=== PATIENT | female | born 1950 | race Caucasian/White ===

== ENCOUNTER → 2017-03-01 | Outpatient (CLI) | payer MEDICARE, BC ==
[2017-03-01 08:16] LABS: Appearance,Urine Clear (Clear); Bacteria,Urine Rare /hpf; Bilirubin,Urine Negative (Negative); Glucose,Urine (UA) Negative (Negative); Ketones,Urine Negative (Negative); Leukocyte Esterase,Urine Trace (Negative); Mucus,Urine Occasional /hpf; Nitrite,Urine Negative (Negative); Particle Count 2523; Protein,Urine Negative (Negative); RBC,Urine 25 /hpf (0-5); Specific Gravity,Urine 1.009 (1.001-1.035); Squamous Epithelial Cell,Urine 1 /hpf (0-4); UA Billing (MACRO vs. MICRO) MICRO; Urobilinogen,Urine <2.0 mg/dL (<2.0); WBC,Urine 7 /hpf (0-5)
[2017-03-01 08:19] LABS: Basophils # (A) 0.1 k/uL (0-0.2); Basophils % (A) 2 %; CH 29.9; CHCM 32.2; Eosinophils # (A) 0.1 k/uL (0-0.7); Eosinophils % (A) 3 %; HCT 39.8 % (34.0-46.0); HDW 2.51; HGB 12.9 gm/dL (11.4-16.0); Luc # (Auto) 0.11; Luc % (Auto) 3; Lymphocytes # (A) 1.4 k/uL (1.0-4.8); Lymphocytes % (A) 33 %; MCH 30.3 pg (25.0-35.0); MCHC 32.4 g/dL (31.0-37.0); MCV 93.4 fL (80.0-100.0); Mean Platelet Volume 6.9; Monocytes # (A) 0.3 k/uL (0-1.0); Monocytes % (A) 7 %; Neutrophils # (A) 2.1 k/uL (1.3-7.7); Neutrophils % (A) 52 %; RBC 4.26 m/uL (3.80-5.40); RDW 12.8 % (11.5-15.5); WBC 4.1 k/uL (3.8-10.6); WBC (Perox) 4.17
[2017-03-01 08:33] LABS: Hemoglobin A1C 5.8 % (4.2-6.1)
[2017-03-01 10:50] LABS: ALT 30 U/L (9-52); AST 24 U/L (14-36); Alkaline Phosphatase 70 U/L (38-126); Anion Gap 5 mmol/L; Blood Urea Nitrogen 13 mg/dL (7-17); Calcium 9.2 mg/dL (8.4-10.2); Carbon Dioxide 30 mmol/L (22-30); Chloride 107 mmol/L (98-107); Cholesterol 198 mg/dL (<200); Glucose 85 mg/dL (74-99); HDL Cholesterol 103 mg/dL (40-60); Non-African American GFR(MDRD) >60 (>60 ml/min/1.73 sqM); Potassium 4.3 mmol/L (3.5-5.1); Sodium 142 mmol/L (137-145); Total Bilirubin 0.6 mg/dL (0.2-1.3); Total Protein 6.6 g/dL (6.3-8.2); Triglycerides 56 mg/dL (<150)
[2017-03-01 11:38] LABS: Vitamin B12 576 pg/mL
== END | disposition home or self-care (01) ==
LOC: LABWHC1 07:17
PROVIDERS: ATTEND Family Medicine
DX: E78.5 Hyperlipidemia, unspecified (principal); I48.0 Paroxysmal atrial fibrillation; R31.1 Benign essential microscopic hematuria; R73.01 Impaired fasting glucose
CPT/HCPCS: 36415; 80053; 80061; 81001; 82306; 82607; 83036; 84439; 84443; 85025

== ENCOUNTER → 2017-06-30 | Outpatient (CLI) | payer MEDICARE, BC ==
--- NOTE | 2017-06-30 09:45 | MM ---
Reason for exam: additional evaluation requested from prior study. Last mammogram was performed 1 year ago. History: Patient is postmenopausal and has history of breast cancer at age 52. Family history of breast cancer in maternal aunt. Benign lumpectomy of the left breast, October 15, 2002. Stereotactic core biopsy of the left breast, September 21, 2002. 2 benign cyst aspirations of the right breast. Physical Findings: Nurse did not find any significant physical abnormalities on exam. MG 3D Diag Mammo W/Cad BLESSING Bilateral CC and MLO view(s) were taken. ML, spot compression MLO, and spot compression CC view(s) were taken of the right breast. Prior study comparison: June 18, 2016, bilateral MG diagnostic mammo w CAD BLESSING. June 11, 2015, bilateral MG diagnostic mammo w CAD BLESSING. May 28, 2014, bilateral MG diagnostic mammo w CAD BLESSING. There are scattered fibroglandular densities. Finding: Architectural distortion in the upper outer quadrant, middle position of the right breast. These results were verbally communicated with the patient and result sheet given to the patient on 06/30/17. ASSESSMENT: Incomplete: need additional imaging evaluation, BI-RAD 0 RECOMMENDATION: Ultrasound of the right breast. (upper outer quadrant)
--- NOTE | 2017-06-30 09:47 | USB ---
Reason for exam: additional evaluation requested from abnormal screening. History: Patient is postmenopausal and has history of breast cancer at age 52. Family history of breast cancer in maternal aunt. Benign lumpectomy of the left breast, October 15, 2002. Stereotactic core biopsy of the left breast, September 21, 2002. 2 benign cyst aspirations of the right breast. US Breast Limited RT Right breast ultrasound demonstrates a 0.4 x 0.3 x 0.3cm hypoechoic mass at 11 o'clock. These results were verbally communicated with the patient and result sheet given to the patient on 06/30/17. ASSESSMENT: Suspicious, BI-RAD 4 RECOMMENDATION: Ultrasound core biopsy of the right breast. Called Dr. Barbosa with mammographic findings office states they will call patient with appointment date and time. PRELIMINARY REPORT CALLED AND FAXED TO DR. APONTE ON 06/30/17 /TMP.
== END | disposition home or self-care (01) ==
LOC: RADMAMWWP 07:35
PROVIDERS: ATTEND Family Medicine
DX: R92.8 Other abnormal and inconclusive findings on diagnostic imaging of breast (principal); Z85.3 Personal history of malignant neoplasm of breast
CPT/HCPCS: 76642; G0204; G0279

== ENCOUNTER → 2017-07-13 | Day surgery (SDC) | payer MEDICARE, BC ==
[2017-07-13 11:21] VITALS: BP 122/77; PULSE 58; RESP 16; TEMP 97.1; BMI 25.2
[2017-07-13 12:23] LABS: INR 0.9 (<1.2); Prothrombin Time 9.6 sec (9.0-12.0)
--- NOTE | 2017-07-13 13:04 | USB ---
Discontinued ultrasound guided biopsy right breast HISTORY: Right 11:00 abnormality on prior examination COMPARISON: June 30, 2017 The patient was prescanned for possible right sided breast core biopsy. The lesion in question noted previously does not persist. The area is felt to reflect dense fibroglandular tissue. This was discus sed with the patient and the patient's physician. Six-month follow-up ultrasound and mammography is a dvised. IMPRESSION: BI-RADS 3 probably benign Recommendation: 6 month follow-up right-sided breast ultrasound and mammography.
== END ==
LOC: RADUSWWP 10:58
PROVIDERS: ATTEND Surgery
DX: R92.8 Other abnormal and inconclusive findings on diagnostic imaging of breast (principal); Z53.8 Procedure and treatment not carried out for other reasons
CPT/HCPCS: 85610

== ENCOUNTER → 2017-09-08 | Outpatient (CLI) | payer MEDICARE, BC ==
[2017-09-08 07:55] LABS: Basophils % (A) 1 %; CH 28.8; CHCM 31.5; Eosinophils # (A) 0.2 k/uL (0-0.7); Eosinophils % (A) 4 %; HDW 2.38; HGB 13.1 gm/dL (11.4-16.0); Luc # (Auto) 0.09; Luc % (Auto) 2; Lymphocytes # (A) 1.6 k/uL (1.0-4.8); Lymphocytes % (A) 39 %; MCH 29.3 pg (25.0-35.0); MCHC 31.8 g/dL (31.0-37.0); Mean Platelet Volume 7.2; Monocytes # (A) 0.3 k/uL (0-1.0); Monocytes % (A) 6 %; Neutrophils % (A) 48 %; RBC 4.46 m/uL (3.80-5.40); RDW 13.2 % (11.5-15.5); WBC 4.2 k/uL (3.8-10.6); WBC (Perox) 4.12
[2017-09-08 08:23] LABS: ALT 26 U/L (9-52); AST 27 U/L (14-36); Alkaline Phosphatase 68 U/L (38-126); Anion Gap 7 mmol/L; Blood Urea Nitrogen 16 mg/dL (7-17); Calcium 9.3 mg/dL (8.4-10.2); Carbon Dioxide 28 mmol/L (22-30); Chloride 105 mmol/L (98-107); Cholesterol 236 mg/dL (<200); Creatine Kinase 113 U/L (30-135); Glucose 88 mg/dL (74-99); HDL Cholesterol 91 mg/dL (40-60); Magnesium 1.9 mg/dL (1.6-2.3); Non-African American GFR(MDRD) >60 (>60 ml/min/1.73 sqM); Potassium 4.7 mmol/L (3.5-5.1); Sodium 140 mmol/L (137-145); Total Bilirubin 0.6 mg/dL (0.2-1.3); Total Protein 7.1 g/dL (6.3-8.2)
== END | disposition home or self-care (01) ==
LOC: LABWHC1 07:23
PROVIDERS: ATTEND Family Medicine
DX: D05.12 Intraductal carcinoma in situ of left breast (principal); E78.5 Hyperlipidemia, unspecified; I48.2 Chronic atrial fibrillation; R73.01 Impaired fasting glucose; R31.1 Benign essential microscopic hematuria
CPT/HCPCS: 36415; 80053; 80061; 82306; 82550; 82607; 83036; 83735; 84439; 84443; 85025

== ENCOUNTER → 2018-01-11 | Outpatient (CLI) | payer BC, MEDICARE ==
--- NOTE | 2018-01-11 14:23 | MM ---
Reason for exam: follow-up at short interval from prior study. Last mammogram was performed 6 months ago. History: Patient is postmenopausal and has history of breast cancer at age 52. Family history of breast cancer in maternal aunt. US discontinued breast bx RT of the right breast, July 13, 2017. Benign lumpectomy of the left breast, October 15, 2002. Stereotactic core biopsy of the left breast, September 21, 2002. 2 benign cyst aspirations of the right breast. Physical Findings: Nurse Summary: 1cm nodule in the right breast at 11 o'clock (nurse dw). MG 3D Diag Mammo W/Cad RT CC, MLO, and ML view(s) were taken of the right breast. Prior study comparison: June 30, 2017, bilateral MG 3d diag mammo w/cad BLESSING. June 18, 2016, bilateral MG diagnostic mammo w CAD BLESSING. The breast tissue is heterogeneously dense. This may lower the sensitivity of mammography. Global asymmetry upper outer quadrant right breast shows not interval change. These results were verbally communicated with the patient and result sheet given to the patient on 01/11/18. ASSESSMENT: Incomplete: need additional imaging evaluation, BI-RAD 0 RECOMMENDATION: Ultrasound of the right breast.
--- NOTE | 2018-01-11 14:25 | USB ---
Reason for exam: follow-up at short interval from prior study. History: Patient is postmenopausal and has history of breast cancer at age 52. Family history of breast cancer in maternal aunt. US discontinued breast bx RT of the right breast, July 13, 2017. Benign lumpectomy of the left breast, October 15, 2002. Stereotactic core biopsy of the left breast, September 21, 2002. 2 benign cyst aspirations of the right breast. US Breast RT Right breast ultrasound includes all four quadrants, the retroareolar region and axilla. Finding demonstrates a 2 x 1 x 3mm oval, cystic lesion at 9 o'clock and a 2 x 2 x 2mm oval, cystic lesion at 9 o'clock. Dense echogenic tissue seen at the 11 o'clock palpable site, similar appearance to 07/13/17. These results were verbally communicated with the patient and result sheet given to the patient on 01/11/18. ASSESSMENT: Probably benign, BI-RAD 3 RECOMMENDATION: Follow-up diagnostic mammogram of both breasts in 6 months. Back on schedule.
== END | disposition home or self-care (01) ==
LOC: RADMAMWWP 13:26
PROVIDERS: ATTEND Family Medicine
DX: N63.10 Unspecified lump in the right breast, unspecified quadrant (principal); R92.8 Other abnormal and inconclusive findings on diagnostic imaging of breast
CPT/HCPCS: 77065; 76641; G0279

== ENCOUNTER → 2018-03-07 | Outpatient (CLI) | payer MEDICARE ==
[2018-03-07 08:11] LABS: Basophils % (A) 1 %; Eosinophils # (A) 0.3 k/uL (0-0.7); Eosinophils % (A) 4 %; HCT 37.5 % (34.0-46.0); HGB 12.3 gm/dL (11.4-16.0); Lymphocytes # (A) 1.5 k/uL (1.0-4.8); Lymphocytes % (A) 22 %; MCHC 32.8 g/dL (31.0-37.0); MCV 88.3 fL (80.0-100.0); Mean Platelet Volume 6.9; Monocytes # (A) 0.4 k/uL (0-1.0); Monocytes % (A) 6 %; Neutrophils # (A) 4.3 k/uL (1.3-7.7); Neutrophils % (A) 65 %; Platelet Count 337 k/uL (150-450); RBC 4.24 m/uL (3.80-5.40); RDW 12.3 % (11.5-15.5); WBC 6.7 k/uL (3.8-10.6)
[2018-03-07 08:33] LABS: ALT 18 U/L (9-52); AST 24 U/L (14-36); Albumin 3.6 g/dL (3.5-5.0); Alkaline Phosphatase 78 U/L (38-126); Anion Gap 10 mmol/L; Blood Urea Nitrogen 13 mg/dL (7-17); Calcium 9.3 mg/dL (8.4-10.2); Carbon Dioxide 30 mmol/L (22-30); Chloride 104 mmol/L (98-107); Cholesterol 193 mg/dL (<200); Glucose 85 mg/dL (74-99); HDL Cholesterol 78 mg/dL (40-60); LDL Cholesterol,Calculated 100 mg/dL (0-99); Potassium 4.6 mmol/L (3.5-5.1); Sodium 144 mmol/L (137-145); Total Bilirubin 0.5 mg/dL (0.2-1.3); Total Protein 6.8 g/dL (6.3-8.2); Triglycerides 76 mg/dL (<150)
[2018-03-07 16:45] LABS: Vitamin D 25 Hydroxy 37.7 ng/mL (30.0-100.0)
[2018-03-07 19:03] LABS: Hemoglobin A1C 5.7 % (4.0-6.0)
== END | disposition home or self-care (01) ==
LOC: LABWHC1 07:10
PROVIDERS: ATTEND Family Medicine
DX: Z01.419 Encounter for gynecological examination (general) (routine) without abnormal findings (principal); R92.2 Inconclusive mammogram; R73.01 Impaired fasting glucose; M81.0 Age-related osteoporosis without current pathological fracture
CPT/HCPCS: 36415; 80053; 80061; 82306; 82607; 83036; 84403; 85025

== ENCOUNTER → 2018-05-05 | Outpatient (CLI) | payer MEDICARE ==
--- NOTE | 2018-05-07 17:57 | CT ---
EXAMINATION TYPE: CT soft tissue neck w con DATE OF EXAM: 05/05/2018 HISTORY: Right side lymphadenitis COMPARISON: NONE CT DLP: 270.1 mGycm. Automated Exposure Control for Dose Reduction was Utilized. TECHNIQUE: CT scan of the neck is performed with IV Contrast, patient injected with 100 mL of Isovue 300, axial images are obtained, coronal and sagittal reformatted images are reviewed. FINDINGS: Lymph nodes: Superficial to the right masseter there is a nonenlarged 5 mm short axis lymph node is i dentified. Nonenlarged anterior and posterior cervical chain lymph nodes are seen. No enlarged abnorm al morphologically lymph nodes are noted within the head or neck. Airway: Torus tubarius and fossa of Rosenmuller are unremarkable. Airway is patent. Valleculae and pi riform sinuses are symmetric. True and false focal cords are within normal limits. Supraglottic and i nfraglottic airway are unremarkable and patent. Parotid/submandibular glands: Symmetric and unremarkable without significant atrophy or surrounding i nflammatory change. Carotid/Vascular Structures: There is a normal three-vessel conventional branch pattern of the aortic arch. The common carotid arteries demonstrate no evidence of hemodynamically significant stenosis no eric in the carotid bulbs or cervical portions of the internal carotid arteries. Minimal atheroscleros is is seen of the supraclinoid portions of the intracranial internal carotid arteries. The right post erior communicating artery is either congenitally absent or diminutive and not seen. The vertebral ar teries demonstrate patency in their cervical portions and there is slight left sided dominance of the vertebral arteries. Other: Thyroid gland is atrophic. There is very mild centrilobular emphysematous change and pleural p arenchymal thinning of the lung apices. Moderate multilevel degenerative disc disease is seen of the cervical spine. Mild mucosal thickening is present within the ethmoid sinuses. Remaining visualized p aranasal sinuses and mastoid air cells are well aerated. Osseous structures are grossly intact. There is straightening of the usual cervical lordosis. No prevertebral soft tissue swelling. Exam is not o ptimized for evaluation of intracranial structures. IMPRESSION: 1. No morphologically abnormal or enlarged lymph nodes within the neck. Asymmetric 5 mm short axis ly mph node overlies the right masseter but appears unremarkable in morphology. 2. No evidence of acute inflammatory process of the neck.
== END | disposition home or self-care (01) ==
LOC: RADCTMAIN 17:20
PROVIDERS: ATTEND Family Medicine
DX: L04.9 Acute lymphadenitis, unspecified (principal); E04.1 Nontoxic single thyroid nodule
CPT/HCPCS: 70491; Q9967

== ENCOUNTER → 2018-06-09 | Outpatient (CLI) | payer MEDICARE ==
[2018-06-09 08:07] LABS: Basophils % (A) 1 %; Eosinophils # (A) 0.3 k/uL (0-0.7); Eosinophils % (A) 5 %; HCT 34.9 % (34.0-46.0); HGB 11.1 gm/dL (11.4-16.0); Lymphocytes # (A) 1.6 k/uL (1.0-4.8); Lymphocytes % (A) 29 %; MCH 27.5 pg (25.0-35.0); MCHC 31.9 g/dL (31.0-37.0); MCV 86.4 fL (80.0-100.0); Mean Platelet Volume 6.6; Monocytes # (A) 0.3 k/uL (0-1.0); Monocytes % (A) 6 %; Neutrophils # (A) 3.1 k/uL (1.3-7.7); Neutrophils % (A) 57 %; Platelet Count 336 k/uL (150-450); RBC 4.04 m/uL (3.80-5.40); RDW 13.5 % (11.5-15.5); WBC 5.5 k/uL (3.8-10.6)
[2018-06-09 09:44] LABS: C Reactive Protein 23.7 mg/L (<10.0)
[2018-06-09 10:11] LABS: Erythrocyte Sedimentation Rate 70 mm/hr (0-20)
[2018-06-09 10:13] LABS: T4, Free (Free Thyroxine) 1.04 ng/dL (0.78-2.19)
== END | disposition home or self-care (01) ==
LOC: LABWHC1 07:39
PROVIDERS: ATTEND Family Medicine
DX: I48.0 Paroxysmal atrial fibrillation (principal); R79.9 Abnormal finding of blood chemistry, unspecified
CPT/HCPCS: 36415; 84439; 84443; 85025; 85652; 86140

== ENCOUNTER → 2018-06-28 | Outpatient (CLI) | payer MEDICARE ==
--- NOTE | 2018-06-28 17:12 | BD ---
EXAMINATION TYPE: Axial Bone Density DATE OF EXAM: 06/28/2018 COMPARISON: NONE CLINICAL HISTORY: Height: 59.5 IN Weight: 124 LBS FRAX RISK QUESTIONS: History of Fracture in Adulthood: RT WRIST AGE 62 RISK FACTORS HISTORY OF: History of Wrist Fracture: RT When: AGE 62 Surgery to Wrist (right): YES When: AGE 62 Family History of Osteoporosis: YES MOTHER, AUNTS Active: YES Postmenopausal woman: AGE 56 MEDICATIONS: Osteoporosis Medications: YES Which medication: Actonel BONIVA How Lon YEARS Additional Medications: CALCIUM, VIT D, ACTONEL, BLOOD THINNER, BLOOD PRESSURE MEDS, BETA AURORA, EXAM MEASUREMENTS: Bone mineral densitometry was performed using the [employer] System. Bone mineral density as measured about the Lumbar spine is: ----- L1-L4(G/cm2): 0.891 T Score Values are as follows: ----- L2: -2.6 ----- L3: -1.9 ----- L4: -2.5 ----- L1-L4: -2.4 Bone mineral density has: Decreased -1.7% since study of: 06/18/2016 Bone mineral density about the R hip (g/cm2): 0.777 Bone mineral density about the L hip (g/cm2): 0.781 T Score values are as follows: -----R Neck: -1.9 -----L Neck: -1.8 -----R Total: -1.5 -----L Total: -1.1 Bone mineral density has: Increased 1.2% since study of: 06/18/2016 IMPRESSION: Osteoporosis (T Score less than -2.5). There is increased fracture risk and therapy is usually indicated based on age. Re-Screen 1-2 years. NOTE: T-SCORE=SD OF THE YOUNG ADULT MEAN.
== END | disposition home or self-care (01) ==
LOC: RADBDWWP 10:29
PROVIDERS: ATTEND Family Medicine
DX: M81.0 Age-related osteoporosis without current pathological fracture (principal)
CPT/HCPCS: 77080

== ENCOUNTER → 2018-07-04 | Outpatient (CLI) | payer MEDICARE ==
--- NOTE | 2018-07-05 09:20 | MR ---
EXAMINATION TYPE: MR brain wo/w con DATE OF EXAM: 07/04/2018 COMPARISON: None HISTORY: R 44.9, breast cancer TECHNIQUE: Multiplanar, multisequence images of the brain and brainstem is performed without and with IV contras t, utilizing 5 mL intravenous Gadavist . FINDINGS: Diffusion weighted images demonstrate no evidence of a recent infarct or other diffusion ab normality. There is no extra-axial fluid collection, intensity on inversion recovery T2-weighted seq uences within the left eliana may represent artifact. In the periventricular, subcortical, pericallosal white matter there are confluent and scattered hyperintensities present on T2 and inversion recovery sequences, approximately 40-50 lesions are present. The ventricular system and cisternal spaces are normal in size and appearance. The brain volume is age appropriate. Midline structures demonstrate normal morphology. The craniocervical junction appears within normal limits. Post contrast images demonstrate no abnormal enhancement. The dural venous sinuses appear pa tent. The visualized sinuses are clear and the globes are intact. IMPRESSION: Nonspecific white matter demyelination could be due to chronic small vessel ischemia, con public relations writer hypertension, migraine headaches, vasculitis, multiple sclerosis in an appropriate clinical set ting. Metastatic disease is not evident.
== END | disposition home or self-care (01) ==
LOC: RADMRIMAIN 16:29
PROVIDERS: ATTEND Family Medicine
DX: G37.8 Other specified demyelinating diseases of central nervous system (principal); I10 Essential (primary) hypertension
CPT/HCPCS: 82565; 70553; A9581

== ENCOUNTER → 2018-07-07 | Outpatient (CLI) | payer MEDICARE ==
--- NOTE | 2018-07-07 12:44 | XR ---
EXAMINATION TYPE: XR chest 2V DATE OF EXAM: 07/07/2018 COMPARISON: Prior chest 10/27/2016 HISTORY: Cough TECHNIQUE: Frontal and lateral views of the chest are obtained. FINDINGS: There is no focal air space opacity, pleural effusion, or pneumothorax seen. The cardiac silhouette size is within normal limits. There is a mild spinal curvature. The osseous structures ar e intact. IMPRESSION: No acute cardiopulmonary process.
== END | disposition home or self-care (01) ==
LOC: RADXRMAIN 10:44
PROVIDERS: ATTEND Otolaryngology
DX: R05 Cough (principal)
CPT/HCPCS: 71046

== ENCOUNTER → 2019-01-05 | Outpatient (CLI) | payer MEDICARE ==
[2019-01-05 08:39] LABS: Basophils % (A) 1 %; Eosinophils # (A) 0.2 k/uL (0-0.7); Eosinophils % (A) 3 %; HCT 36.1 % (34.0-46.0); HGB 11.5 gm/dL (11.4-16.0); Lymphocytes # (A) 0.9 k/uL (1.0-4.8); Lymphocytes % (A) 18 %; MCHC 31.8 g/dL (31.0-37.0); Mean Platelet Volume 6.2; Monocytes # (A) 0.4 k/uL (0-1.0); Monocytes % (A) 7 %; Neutrophils # (A) 3.6 k/uL (1.3-7.7); Neutrophils % (A) 69 %; Platelet Count 323 k/uL (150-450); RBC 4.11 m/uL (3.80-5.40); RDW 14.9 % (11.5-15.5); WBC 5.2 k/uL (3.8-10.6)
[2019-01-05 08:53] LABS: Appearance,Urine Clear (Clear); Bacteria,Urine Rare /hpf; Bilirubin,Urine Negative (Negative); Blood,Urine Large (Negative); Color,Urine Yellow; Glucose,Urine (UA) Negative (Negative); Ketones,Urine Negative (Negative); Leukocyte Esterase,Urine Small (Negative); Mucus,Urine Few /hpf; Nitrite,Urine Negative (Negative); PH, Urine 6.5 (5.0-8.0); Protein,Urine Trace (Negative); RBC,Urine 115 /hpf (0-5); Specific Gravity,Urine 1.015 (1.001-1.035); Squamous Epithelial Cell,Urine 3 /hpf (0-4); Urobilinogen,Urine <2.0 mg/dL (<2.0); WBC,Urine 11 /hpf (0-5)
[2019-01-05 16:38] LABS: Vitamin D 25 Hydroxy 40.7 ng/mL (30.0-100.0)
[2019-01-05 16:45] LABS: Albumin 3.7 g/dL (3.80-4.90); Albumin/Globulin Ratio 1.54 (1.60-3.17); Anion Gap 8.6 mmol/L (4.00-12.00); Calcium 8.9 mg/dL (8.7-10.3); Carbon Dioxide 27.4 mmol/L (21.6-31.8); Globulin 2.4 g/dL (1.6-3.3); LDL Cholesterol,Calculated 89.4 mg/dL (0.0-131.0); Potassium 4.2 mmol/L (3.5-5.5); Total Bilirubin 0.4 mg/dL (0.2-1.2); Total Protein 6.1 g/dL (6.2-8.2); Uric Acid 4.6 mg/dL (2.9-7.7); VLDL Calculation 13.6 mg/dL (5.00-40.00)
[2019-01-05 21:16] LABS: Hemoglobin A1C 6.1 % (4.0-6.0)
== END | disposition home or self-care (01) ==
LOC: LABWHC1 08:02
PROVIDERS: ATTEND Family Medicine
DX: I48.0 Paroxysmal atrial fibrillation (principal); I10 Essential (primary) hypertension; E07.9 Disorder of thyroid, unspecified; E78.5 Hyperlipidemia, unspecified; M06.4 Inflammatory polyarthropathy
CPT/HCPCS: 36415; 80053; 80061; 81001; 82043; 82306; 82570; 82607; 83036; 84439; 84443; 84550; 85025

== ENCOUNTER → 2019-04-10 | Outpatient (CLI) | payer MEDICARE ==
--- NOTE | 2019-04-10 11:49 | MM ---
Reason for exam: additional evaluation requested from prior study. Last mammogram was performed 1 year and 3 months ago. History: Patient is postmenopausal and has history of breast cancer at age 52. Family history of breast cancer in maternal aunt. US discontinued breast bx RT of the right breast, July 13, 2017. Benign lumpectomy of the left breast, October 15, 2002. Stereotactic core biopsy of the left breast, September 21, 2002. 2 benign cyst aspirations of the right breast. Physical Findings: Nurse did not find any significant physical abnormalities on exam. MG 3D Diag Mammo W/Cad BLESSING Bilateral CC and MLO view(s) were taken. Prior study comparison: January 11, 2018, right breast MG 3d diag mammo w/cad RT. June 30, 2017, bilateral MG 3d diag mammo w/cad BLESSING. The breast tissue is heterogeneously dense. This may lower the sensitivity of mammography. There is a stable right hamartoma. Upper outer quadrant distortion on the left is new 4-5cm from nipple. These results were verbally communicated with the patient and result sheet given to the patient on 04/10/19. ASSESSMENT: Incomplete: need additional imaging evaluation, BI-RAD 0 RECOMMENDATION: Ultrasound of the left breast.
--- NOTE | 2019-04-10 11:51 | USB ---
Reason for exam: additional evaluation requested from abnormal screening. History: Patient is postmenopausal and has history of breast cancer at age 52. Family history of breast cancer in maternal aunt. US discontinued breast bx RT of the right breast, July 13, 2017. Benign lumpectomy of the left breast, October 15, 2002. Stereotactic core biopsy of the left breast, September 21, 2002. 2 benign cyst aspirations of the right breast. US Breast Limited LT Left limited breast ultrasound including focal area of concern, retroareolar and axilla demonstrates no cystic or solid lesion seen. No sonographic correlate to the mammographic finding. These results were verbally communicated with the patient and result sheet given to the patient on 04/10/19. ASSESSMENT: Suspicious, BI-RAD 4 RECOMMENDATION: Stereotactic core biopsy of the left breast. (Approach CC, from above is recommended) Called Dr. Wesley with mammographic findings and has scheduled an appointment for the patient for 05/07/19 at 9:[address] Grant. Biopsy scheduled for 04/26/19 at 10:20. PRELIMINARY REPORT CALLED AND FAXED TO DR. GRANT ON 04/10/19.
== END | disposition home or self-care (01) ==
LOC: RADMAMWWP 08:04
PROVIDERS: ATTEND Family Medicine
DX: R92.8 Other abnormal and inconclusive findings on diagnostic imaging of breast (principal)
CPT/HCPCS: 77066; 76642; G0279; 77062

== ENCOUNTER → 2019-04-20 | Day surgery (SDC) | payer MEDICARE ==
[2019-04-20 09:44] VITALS: BP 139/80; PULSE 67; RESP 18; TEMP 98.1; BMI 53.8
[2019-04-20 10:04] LABS: INR 0.9 (<1.2); Partial Thromboplastin Time 23.3 sec (22.0-30.0); Prothrombin Time 9.5 sec (9.0-12.0)
--- NOTE | 2019-04-23 07:54 | MM ---
Reason for exam: additional evaluation requested from abnormal screening. Last mammogram was performed less than 1 month ago. History: Patient is postmenopausal and has history of breast cancer at age 52. Family history of breast cancer in maternal aunt. US discontinued breast bx RT of the right breast, July 13, 2017. Benign lumpectomy of the left breast, October 15, 2002. Stereotactic core biopsy of the left breast, September 21, 2002. 2 benign cyst aspirations of the right breast. MG 3D Work Up W/Cad LT CC and LM view(s) were taken of the left breast. Prior study comparison: April 10, 2019, bilateral MG 3d diag mammo w/cad BLESSING. January 11, 2018, right breast MG 3d diag mammo w/cad RT. No suspicious abnormality. Left area of distortion adjacent to the biopsy site resolves on additional views with no remaining target for biopsy. 6 month precautionary follow up discussed with the patient. These results were verbally communicated with the patient on 04/20/19. ASSESSMENT: Probably benign, BI-RAD 3 RECOMMENDATION: Follow-up diagnostic mammogram of the left breast in 6 months.
== END ==
LOC: RADMAMWWP 09:06
PROVIDERS: ATTEND Student in an Organized Health Care Education/Training Program
DX: R92.8 Other abnormal and inconclusive findings on diagnostic imaging of breast (principal); Z78.0 Asymptomatic menopausal state; Z80.3 Family history of malignant neoplasm of breast; Z85.3 Personal history of malignant neoplasm of breast
CPT/HCPCS: 85610; 85730; 77065; G0279; 77061

== ENCOUNTER → 2019-09-06 | Outpatient (CLI) | payer MEDICARE ==
[2019-09-06 08:19] LABS: Basophils # (A) 0.1 k/uL (0-0.2); Basophils % (A) 2 %; Eosinophils # (A) 0.3 k/uL (0-0.7); Eosinophils % (A) 5 %; HCT 37.3 % (34.0-46.0); Lymphocytes # (A) 1.2 k/uL (1.0-4.8); Lymphocytes % (A) 20 %; MCH 29.9 pg (25.0-35.0); MCHC 32.3 g/dL (31.0-37.0); MCV 92.5 fL (80.0-100.0); Mean Platelet Volume 6.6; Monocytes # (A) 0.5 k/uL (0-1.0); Monocytes % (A) 8 %; Neutrophils # (A) 3.7 k/uL (1.3-7.7); Neutrophils % (A) 62 %; Platelet Count 316 k/uL (150-450); RBC 4.03 m/uL (3.80-5.40); RDW 13.6 % (11.5-15.5)
[2019-09-06 16:48] LABS: Magnesium 1.9 mg/dL (1.5-2.4)
[2019-09-07 06:02] LABS: Albumin 3.9 g/dL (3.80-4.90); Albumin/Globulin Ratio 1.86 (1.60-3.17); Anion Gap 11.8 mmol/L (4.00-12.00); Calcium 8.9 mg/dL (8.7-10.3); Carbon Dioxide 26.2 mmol/L (21.6-31.8); Chol/HDL Ratio 2.36; Globulin 2.1 g/dL (1.6-3.3); LDL Cholesterol,Calculated 104.6 mg/dL (0.0-131.0); Total Bilirubin 0.6 mg/dL (0.2-1.2); VLDL Calculation 16.4 mg/dL (5.00-40.00)
== END | disposition home or self-care (01) ==
LOC: LABWHC1 07:19
PROVIDERS: ATTEND Family Medicine
DX: E78.5 Hyperlipidemia, unspecified (principal); I48.0 Paroxysmal atrial fibrillation; I10 Essential (primary) hypertension
CPT/HCPCS: 36415; 80053; 80061; 82550; 83735; 84439; 84443; 85025

== ENCOUNTER → 2019-11-16 | Outpatient (CLI) | payer MEDICARE ==
--- NOTE | 2019-11-16 08:37 | MM ---
Reason for exam: follow-up at short interval from prior study. Last mammogram was performed 7 months ago. History: Patient is postmenopausal and has history of breast cancer at age 52. Family history of breast cancer in maternal aunt. US discontinued breast bx RT of the right breast, July 13, 2017. Benign lumpectomy of the left breast, October 15, 2002. Stereotactic core biopsy of the left breast, September 21, 2002. 2 benign cyst aspirations of the right breast. Physical Findings: Nurse did not find any significant physical abnormalities on exam. MG 3D Diag Mammo W/Cad LT CC and MLO view(s) were taken of the left breast. Prior study comparison: April 20, 2019, left breast MG 3d work up w/cad LT. April 10, 2019, bilateral MG 3d diag mammo w/cad BLESSING. There are scattered fibroglandular densities. No suspicious abnormality. Post surgical change on the left. No significant new findings when compared with previous films. These results were verbally communicated with the patient and result sheet given to the patient on 11/16/19. ASSESSMENT: Negative, BI-RAD 1 RECOMMENDATION: Follow-up diagnostic mammogram of both breasts in 1 year.
== END | disposition home or self-care (01) ==
LOC: RADMAMWWP 07:02
PROVIDERS: ATTEND Family Medicine
DX: R92.8 Other abnormal and inconclusive findings on diagnostic imaging of breast (principal)
CPT/HCPCS: 77065; G0279; 77061

== ENCOUNTER → 2020-07-10 | Outpatient (CLI) | payer MEDICARE ==
--- NOTE | 2020-07-10 15:24 | US ---
EXAMINATION TYPE: US kidneys/renal and bladder DATE OF EXAM: 07/10/2020 COMPARISON: NONE CLINICAL HISTORY: R31.9 HEMATURIA. Intermittent microscopic hematuria x years per patient; on blood t hinner for AFIB, decreasing hemoglobin; on methotrexate for inflammatory disease per patient EXAM MEASUREMENTS: Right Kidney: 11.2x 6.7 x 3.9 cm Left Kidney: 10.6 x 5.8 x 5.0 cm Post Void Residual Volume: 50.6 mL Right Kidney: very small lateral cortical cyst seen = 0.3 x 0.2 x 0.3cm. Left Kidney: No hydronephrosis or masses seen Bladder: wnl Bilateral Jets seen: yes, small ureteral jets were seen Normal Post Void Residual: post void is mildly abnormal as is greater than 50.0ml. There is no evidence for hydronephrosis at this point in time. No nephrolithiasis is seen. No solid masses are identified. The urinary bladder is anechoic. Bilateral ureteral jets are seen. IMPRESSION: Renal cortical cyst right kidney.
== END | disposition home or self-care (01) ==
LOC: RADUSWWP 14:25
PROVIDERS: ATTEND Urology
DX: N28.1 Cyst of kidney, acquired (principal)
CPT/HCPCS: 76770

== ENCOUNTER 2020-08-12 06:59 | Day surgery (SDC) | payer MEDICARE ==
[2020-08-07 15:42] VITALS: BMI 24.0
[~2020-08-12 06:59] MED LIST: LACTATED RINGERS 1,000 ML IV SCH; LIDOCAINE 1% (10MG/ML) FOR IV START INTRADERMA PRN; MIDAZOLAM 2 MG/2 ML VIAL IV PRN
[2020-08-12 07:31] VITALS: TEMP 97.1
[2020-08-12] MEDS ORDERED: NA PHOS,M-B/NA PHOS,DI-BA 133 ML ENEMA RECTAL ONE (07:50)
[2020-08-12] MEDS ORDERED: PROPOFOL 10 MG/ML 20 ML VIAL IV ONE (08:00)
[2020-08-12] MEDS ORDERED: LIDOCAINE 1% INJ 10MG/ML (20 ML MDV) ONE (08:00)
--- NOTE | 2020-08-12 08:05 | P.GSHP ---
History of Present Illness H&P Date: 08/12/20 Chief Complaint: Colon cancer screening 70-year-old female here today for colonoscopy. Last colonoscopy 5 years ago. Family history of colon cancer in her father. No bowel complaints. Patient's prep was somewhat suboptimal. She had enemas this morning with good results. Past Medical History Past Medical History: Atrial Fibrillation, CVA/TIA, Hypertension, Mitral Valve Prolapse (MVP) Additional Past Medical History / Comment(s): Hx. Ductal Carcinoma In Situ left breast 2001, hx of inflammatory process, not RA, that causes increased sed rate and C reactive protein, hx of osteoporosis, states hx of TIA x2, per testing, unknown when, no residual effects History of Any Multi-Drug Resistant Organisms: None Reported Past Surgical History: Breast Surgery, Cardiac Ablation, Orthopedic Surgery Additional Past Surgical History / Comment(s): ablation for Afib, bunion surgery bilateral feet, right ankle surgery, right wrist surgery, left breast lumpectomy 2001, sx for glaucoma, sue cataract sx Past Anesthesia/Blood Transfusion Reactions: No Reported Reaction Smoking Status: Former smoker - Past Family History Father Family Medical History: Cancer Additional Family Medical History / Comment(s): colon Medications and Allergies Home Medications Medication Instructions Recorded Confirmed Type Raloxifene [Evista] 60 mg PO QAM 10/27/16 08/12/20 History amLODIPine [Norvasc] 2.5 mg PO QAM 10/27/16 08/12/20 History Fish Oil/Dha/Epa [Fish Oil 1,200 1,200 mg PO DAILY 07/06/17 08/12/20 History mg Fish Oil] Multivitamins, Thera [Multivitamin 2 tab PO DAILY 07/06/17 08/12/20 History (formulary)] Warfarin [Coumadin] 7.5 mg PO SA 07/06/17 08/12/20 History Folic Acid 1 mg PO DAILY 04/12/19 08/12/20 History L.acidoph,Paracasei, B.lactis 1 cap PO DAILY 04/12/19 08/12/20 History [Probiotic] Propranolol HCl [Inderal LA] 60 mg PO HS 04/12/19 08/12/20 History metHOTREXate sodium [Methotrexate] 25 mg PO TH 04/12/19 08/12/20 History Acetaminophen [Tylenol Extra 500 mg PO DAILY PRN 08/07/20 08/12/20 History Strength] Cholecalciferol [Vitamin D3 (25 2,000 unit PO SUSA 08/07/20 08/12/20 History Mcg = 1000 Iu)] Hemavite 2 tab PO DAILY 08/07/20 08/12/20 History Magnesium 500 mg PO TID 08/07/20 08/12/20 History Warfarin [Coumadin] 0.5 tab PO SUMOTUWETHFR 08/07/20 08/12/20 History Allergies Allergy/AdvReac Type Severity Reaction Status Date / Time No Known Allergies Allergy Verified 08/12/20 07:16 Surgical - Exam Vital Signs Temp Pulse Resp BP Pulse Ox 97.1 F L 63 16 127/62 97 08/12/20 07:15 08/12/20 07:15 08/12/20 07:15 08/12/20 07:15 08/12/20 07:15 Physical exam: General: Well-developed, well-nourished HEENT: Normocephalic, sclerae nonicteric Abdomen: Nontender, nondistended Extremities: No edema Neuro: Alert and oriented Assessment and Plan (1) Colon cancer screening Narrative/Plan: Will proceed with colonoscopy at this time Current Visit: Yes Status: Acute Code(s): Z12.11 - ENCOUNTER FOR SCREENING FOR MALIGNANT NEOPLASM OF COLON SNOMED Code(s): 620993351
--- NOTE | 2020-08-12 08:22 | P.PCN ---
Date of Procedure: 08/12/20 Procedure(s) Performed: PREOPERATIVE DIAGNOSIS: Colon cancer screening, family history of colon cancer POSTOPERATIVE DIAGNOSIS: Diverticulosis, slightly suboptimal prep PROCEDURE: Colonoscopy ANESTHESIA: MAC SURGEON: Oc Crenshaw M.D. SPECIMENS: None ENDOSCOPIC PROCEDURE: The patient was placed on the endoscopy table in the left decubitus position. The Olympus colonoscope was inserted into the anus and passed under direct visualization to the base of the cecum. The appendiceal orifice was visualized. From that point the scope was slowly withdrawn inspecting all surfaces carefully. There were no neoplastic inflammatory or polypoid lesions throughout the cecum, ascending, transverse, descending, sigmoid and rectum. There was left-sided diverticulosis noted. The patient's prep was slightly suboptimal. Digital rectal examination was normal. The patient was taken to the recovery room in stable condition per anesthesia guidelines. RECOMMENDATIONS: Resume diet. Follow colonoscopy 5 years.
[2020-08-12 08:36] VITALS: BP 131/78; PULSE 62; RESP 18
== END 2020-08-12 09:06 | disposition home or self-care (01) ==
LOC: ORWHC2ENDO 06:59
PROVIDERS: ATTEND Surgery
DX: Z12.11 Encounter for screening for malignant neoplasm of colon (principal); K57.30 Diverticulosis of large intestine without perforation or abscess without bleeding; I48.91 Unspecified atrial fibrillation; I34.1 Nonrheumatic mitral (valve) prolapse; Z80.0 Family history of malignant neoplasm of digestive organs; Z86.73 Personal history of transient ischemic attack (TIA), and cerebral infarction without residual deficits; I10 Essential (primary) hypertension; Z85.3 Personal history of malignant neoplasm of breast; Z87.891 Personal history of nicotine dependence; M81.0 Age-related osteoporosis without current pathological fracture; Z98.42 Cataract extraction status, left eye; Z98.41 Cataract extraction status, right eye; Z98.890 Other specified postprocedural states; Z79.01 Long term (current) use of anticoagulants; Z79.899 Other long term (current) drug therapy; Z79.890 Hormone replacement therapy
CPT/HCPCS: J2001; J2704; G0105

== ENCOUNTER → 2020-08-27 | Outpatient (CLI) | payer MEDICARE ==
[2020-08-27 08:48] LABS: HCT 40.8 % (34.0-46.0); HGB 12.8 gm/dL (11.4-16.0); MCH 29.7 pg (25.0-35.0); MCHC 31.3 g/dL (31.0-37.0); MCV 94.9 fL (80.0-100.0); WBC 4.5 k/uL (3.8-10.6)
[2020-08-27 08:49] LABS: Basophils # (A) 0.1 k/uL (0-0.2); Basophils % (A) 1 %; Eosinophils # (A) 0.3 k/uL (0-0.7); Eosinophils % (A) 6 %; Lymphocytes # (A) 1.2 k/uL (1.0-4.8); Lymphocytes % (A) 26 %; Monocytes # (A) 0.4 k/uL (0-1.0); Monocytes % (A) 8 %; Neutrophils # (A) 2.5 k/uL (1.3-7.7); Neutrophils % (A) 56 %; Platelet Count 270 k/uL (150-450); RDW 14.4 % (11.5-15.5)
[2020-08-27 15:40] LABS: % Iron Saturation 24.32 (12.00-45.00); African American GFR (CKD) 85.4 (60.0-200.0); Albumin/Globulin Ratio 1.54 (1.60-3.17); Anion Gap 6.3 mmol/L (4.00-12.00); BUN/Creat Ratio 22.5 Ratio (12.00-20.00); Calcium 9.5 mg/dL (8.7-10.3); Carbon Dioxide 29.7 mmol/L (21.6-31.8); Globulin 2.6 g/dL (1.6-3.3); Non-African American GFR(CKD) 73.7 (60.0-200.0); Potassium 4.4 mmol/L (3.5-5.5); Total Bilirubin 0.6 mg/dL (0.2-1.2); Total Protein 6.6 g/dL (6.2-8.2)
== END | disposition home or self-care (01) ==
LOC: LABWHC1 08:01
PROVIDERS: ATTEND Family Medicine
DX: I10 Essential (primary) hypertension (principal); D50.9 Iron deficiency anemia, unspecified; R31.9 Hematuria, unspecified
CPT/HCPCS: 36415; 80053; 83540; 83550; 85025

== ENCOUNTER → 2020-09-10 | Outpatient (CLI) | payer MEDICARE ==
--- NOTE | 2020-09-11 05:52 | BD ---
EXAMINATION TYPE: Axial Bone Density DATE OF EXAM: 09/10/2020 COMPARISON: 06/28/2018 CLINICAL HISTORY: Postmenopausal screening Height: 59 IN Weight: 127 LBS FRAX RISK QUESTIONS: History of Fracture in Adulthood: YES RT WRIST AGE 63 RISK FACTORS HISTORY OF: History of Wrist Fracture: YES RT WRIST AGE 63 Surgery to Wrist (right): YES RT WRIST AGE 63 Family History of Osteoporosis: YES MOTHER,AUNTS Active: YES Postmenopausal woman: AGE 56 MEDICATIONS: Osteoporosis Medications: NOT NOW Which medication: Boniva How Long: TOOK PREVIOUSLY FOR 4 YEARS Additional Medications: CALCIUM, VIT D,AMLODIPINE, RALOXIFENE, PROPRANOLOL, WARFARIN, METHOTREXATE,FO LIC ACID, FISH OIL, MAGNESIUM, HEMEVITE EXAM MEASUREMENTS: Bone mineral densitometry was performed using the [employer] System. Bone mineral density as measured about the Lumbar spine is: ----- L1-L4(G/cm2): 0.817 T Score Values are as follows: ----- L2: -3.1 ----- L3: -2.3 ----- L4: -3.7 ----- L1-L4: -3.0 Bone mineral density has: Decreased -9.4% since study of: 06/28/2018 Bone mineral density about the R hip (g/cm2): 0.774 Bone mineral density about the L hip (g/cm2): 0.726 T Score values are as follows: -----R Neck: -1.9 -----L Neck: -2.2 -----R Total: -1.6 -----L Total: -1.7 Bone mineral density has: Decreased -5.2% since study of: 06/28/2018 IMPRESSION: Osteoporosis (T Score less than -2.5). There is increased fracture risk and therapy is usually indicated based on age. Re-Screen 1-2 years. NOTE: T-SCORE=SD OF THE YOUNG ADULT MEAN.
--- NOTE | 2020-09-11 09:49 | MM ---
Reason for exam: additional evaluation requested from prior study. Last mammogram was performed 10 months ago. History: Patient is postmenopausal and has history of breast cancer at age 52. Family history of breast cancer in maternal aunt. US discontinued breast bx RT of the right breast, July 13, 2017. Benign lumpectomy of the left breast, October 15, 2002. Stereotactic core biopsy of the left breast, September 21, 2002. 2 benign cyst aspirations of the right breast. Physical Findings: Nurse Summary: 1 x 1cm nodule in the right breast at 11 o'clock (nurse ts). MG 3D Diag Mammo W/Cad BLESSING Bilateral CC and MLO view(s) were taken. Prior study comparison: November 16, 2019, left breast MG 3d diag mammo w/cad LT. April 20, 2019, left breast MG 3d work up w/cad LT. There are scattered fibroglandular densities. Global asymmetry right upper outer quadrant is stable. 11 o'clock right palpable marker. These results were verbally communicated with the patient and result sheet given to the patient on 09/10/20. ASSESSMENT: Incomplete: need additional imaging evaluation, BI-RAD 0 RECOMMENDATION: Ultrasound of the right breast. (palpable)
--- NOTE | 2020-09-11 09:52 | USB ---
Reason for exam: additional evaluation requested from abnormal screening. History: Patient is postmenopausal and has history of breast cancer at age 52. Family history of breast cancer in maternal aunt. US discontinued breast bx RT of the right breast, July 13, 2017. Benign lumpectomy of the left breast, October 15, 2002. Stereotactic core biopsy of the left breast, September 21, 2002. 2 benign cyst aspirations of the right breast. US Breast Limited RT Right limited breast ultrasound including focal area of concern, retroareolar and axilla demonstrates no cystic or solid lesion seen. 9-12 o'clock scanned. Dense tissue seen at 11 o'clock. These results were verbally communicated with the patient and result sheet given to the patient on 09/10/20. ASSESSMENT: Benign, BI-RAD 2 RECOMMENDATION: Routine screening mammogram of both breasts in 1 year. Manage on a clinical basis with regard to any suspicious palpable abnormalities.
== END | disposition home or self-care (01) ==
LOC: RADMAMWWP 14:40
PROVIDERS: ATTEND Family Medicine
DX: N63.10 Unspecified lump in the right breast, unspecified quadrant (principal); M81.0 Age-related osteoporosis without current pathological fracture; Z85.3 Personal history of malignant neoplasm of breast
CPT/HCPCS: 77080; 77066; 76642; G0279; 77062

== ENCOUNTER → 2021-01-15 | Outpatient (CLI) | payer MEDICARE ==
[2021-01-15 22:38] LABS: Basophils # (A) 0.03 X 10*3/uL (0.00-0.10); Basophils % (A) 0.7 %; Eosinophils # (A) 0.24 X 10*3/uL (0.04-0.35); Eosinophils % (A) 5.7 %; HCT 38.5 % (37.2-46.3); HGB 12.6 g/dL (12.0-15.0); Lymphocytes # (A) 1.28 X 10*3/uL (0.90-5.00); Lymphocytes % (A) 30.5 %; MCH 32.2 pg (27.0-32.0); MCHC 32.7 g/dL (32.0-37.0); MCV 98.5 fL (80.0-97.0); Mean Platelet Volume 10.4 fL (9.5-12.2); Monocytes # (A) 0.55 X 10*3/uL (0.20-1.00); Monocytes % (A) 13.1 %; Neutrophils # (A) 2.08 X 10*3/uL (1.80-7.70); Neutrophils % (A) 49.8 %; Platelet Count 277 X 10*3/uL (140-440); RBC 3.91 X 10*6/uL (4.10-5.20); RDW 13.3 % (11.5-14.5); WBC 4.19 X 10*3/uL (4.50-10.00)
[2021-01-15 23:44] LABS: T4, Free (Free Thyroxine) 1.3 ng/dL (0.80-1.80)
[2021-01-15 23:49] LABS: % Iron Saturation 38.21 (12.00-45.00); African American GFR (CKD) 85.4 (60.0-200.0); Albumin 4.2 g/dL (3.80-4.90); Anion Gap 10.9 mmol/L (4.00-12.00); C Reactive Protein 0.4 mg/dL (0.0-0.8); Calcium 9.6 mg/dL (8.7-10.3); Carbon Dioxide 25.1 mmol/L (21.6-31.8); Chol/HDL Ratio 2.22; Globulin 2.1 g/dL (1.6-3.3); LDL Cholesterol,Calculated 101.2 mg/dL (0.0-131.0); Non-African American GFR(CKD) 73.7 (60.0-200.0); Potassium 4.1 mmol/L (3.5-5.5); Total Bilirubin 0.7 mg/dL (0.3-1.2); Total Protein 6.3 g/dL (6.2-8.2); VLDL Calculation 15.8 mg/dL (5.00-40.00)
[2021-01-16 00:19] LABS: Erythrocyte Sedimentation Rate 27 mm/Hr (0-30)
== END | disposition home or self-care (01) ==
LOC: LABWHC1 07:20
PROVIDERS: ATTEND Family Medicine
DX: Z00.00 Encounter for general adult medical examination without abnormal findings (principal); N39.0 Urinary tract infection, site not specified; I48.0 Paroxysmal atrial fibrillation; D50.9 Iron deficiency anemia, unspecified
CPT/HCPCS: 36415; 80053; 80061; 82550; 82607; 83540; 83550; 83735; 84439; 84443; 85025; 85652; 86140

== ENCOUNTER → 2021-02-02 | Outpatient (CLI) | payer MEDICARE ==
--- NOTE | 2021-02-02 13:26 | XR ---
EXAMINATION TYPE: XR chest 2V DATE OF EXAM: 02/02/2021 COMPARISON: 07/07/2018 HISTORY: Shortness of breath TECHNIQUE: Frontal and lateral views of the chest are obtained. FINDINGS: Scattered senescent parenchymal changes noted. Hyperinflation compatible with COPD. No evidence for infiltrate. No evidence for atelectasis. Heart size is stable. Mediastinal structures are stable and grossly unremarkable. No evidence for hilar prominence. Degenerative changes dorsal spine. IMPRESSION: 1. No evidence for acute pulmonary disease.
== END | disposition home or self-care (01) ==
LOC: RADXRMAIN 13:09
PROVIDERS: ATTEND Family Medicine
DX: R06.02 Shortness of breath (principal)
CPT/HCPCS: 71046

== ENCOUNTER → 2021-10-06 | Outpatient (CLI) | payer MEDICARE ==
--- NOTE | 2021-10-06 09:38 | MM ---
Reason for exam: screening (asymptomatic). Last mammogram was performed 1 year and 1 month ago. History: Patient is postmenopausal and has history of breast cancer at age 52. Family history of breast cancer in maternal aunt. US discontinued breast bx RT of the right breast, July 13, 2017. Benign lumpectomy of the left breast, October 15, 2002. Stereotactic core biopsy of the left breast, September 21, 2002. 2 benign cyst aspirations of the right breast. Physical Findings: Nurse did not find any significant physical abnormalities on exam. MG 3D Diag Mammo W/Cad BLESSING Bilateral CC and MLO view(s) were taken. Prior study comparison: September 10, 2020, bilateral MG 3d diag mammo w/cad BLESSING. November 16, 2019, left breast MG 3d diag mammo w/cad LT. April 10, 2019, bilateral MG 3d diag mammo w/cad BLESSING. January 11, 2018, right breast MG 3d diag mammo w/cad RT. There are scattered fibroglandular densities. There are benign appearing vascular calcifications in the right breast. These results were verbally communicated with the patient and result sheet given to the patient on 10/06/21. ASSESSMENT: Benign, BI-RAD 2 RECOMMENDATION: Follow-up diagnostic mammogram of both breasts in 1 year.
== END | disposition home or self-care (01) ==
LOC: RADMAMWWP 08:04
PROVIDERS: ATTEND Family Medicine
DX: R92.8 Other abnormal and inconclusive findings on diagnostic imaging of breast (principal); Z78.0 Asymptomatic menopausal state; Z80.3 Family history of malignant neoplasm of breast; Z85.3 Personal history of malignant neoplasm of breast
CPT/HCPCS: 77066; G0279; 77062

== ENCOUNTER → 2022-02-23 | Outpatient (CLI) | payer MEDICARE ==
[2022-02-23 14:13] LABS: Basophils # (A) 0.06 X 10*3/uL (0.00-0.10); Basophils % (A) 1.3 %; Eosinophils # (A) 0.23 X 10*3/uL (0.04-0.35); Eosinophils % (A) 4.9 %; HCT 39.8 % (37.2-46.3); HGB 12.8 g/dL (12.0-15.0); Immature Grans, Automated 0.2 %; Lymphocytes # (A) 1.35 X 10*3/uL (0.90-5.00); Lymphocytes % (A) 28.7 %; MCH 31.1 pg (27.0-32.0); MCHC 32.2 g/dL (32.0-37.0); MCV 96.6 fL (80.0-97.0); Monocytes # (A) 0.49 X 10*3/uL (0.20-1.00); Monocytes % (A) 10.4 %; NRBC Per 100 WBC 0 /100 WBCS (0.0-0.0); Neutrophils # (A) 2.57 X 10*3/uL (1.80-7.70); Neutrophils % (A) 54.5 %; Platelet Count 230 X 10*3/uL (140-440); RBC 4.12 X 10*6/uL (4.10-5.20); RDW 12.7 % (11.5-14.5); WBC 4.71 X 10*3/uL (4.50-10.00)
[2022-02-23 14:38] LABS: ALT 17 U/L (8-44); AST 27 U/L (13-35); African American GFR (CKD) 84.8 (60.0-200.0); Albumin 4.3 g/dL (3.8-4.9); Albumin/Globulin Ratio 1.54 (1.60-3.17); Alkaline Phosphatase 45 U/L (41-126); BUN/Creat Ratio 17.13 Ratio (12.00-20.00); Blood Urea Nitrogen 13.7 mg/dL (9.0-27.0); Calcium 9.4 mg/dL (8.7-10.3); Carbon Dioxide 26.6 mmol/L (20.0-27.5); Chloride 105 mmol/L (96-109); Chol/HDL Ratio 2.25 Ratio; Creatine Kinase 109 U/L (26-186); Globulin 2.8 g/dL (1.6-3.3); Glucose 91 mg/dL (70-110); LDL Cholesterol,Calculated 115.5 mg/dL (0.0-131.0); Non-African American GFR(CKD) 73.1 (60.0-200.0); Potassium 4.3 mmol/L (3.5-5.5); Sodium 142 mmol/L (135-145); Total Protein 7.1 g/dL (6.2-8.2); VLDL Calculation 13.54 mg/dL (5.00-40.00)
[2022-02-23 14:43] LABS: Erythrocyte Sedimentation Rate 12 mm/Hr (0-30)
== END | disposition home or self-care (01) ==
LOC: LABWHC1 07:31
PROVIDERS: ATTEND Family Medicine
DX: I27.21 Secondary pulmonary arterial hypertension (principal); I50.32 Chronic diastolic (congestive) heart failure; E07.9 Disorder of thyroid, unspecified; E78.5 Hyperlipidemia, unspecified; M35.3 Polymyalgia rheumatica
CPT/HCPCS: 36415; 80053; 80061; 82550; 83880; 84439; 84443; 85025; 85652

== ENCOUNTER → 2022-08-30 | Outpatient (CLI) | payer MEDICARE ==
[2022-08-30 14:29] LABS: Basophils # (A) 0.06 X 10*3/uL (0.00-0.10); Basophils % (A) 1.1 %; Eosinophils # (A) 0.36 X 10*3/uL (0.04-0.35); Eosinophils % (A) 6.8 %; HCT 41.3 % (37.2-46.3); HGB 13.6 g/dL (12.0-15.0); Immature Grans, Automated 0.2 %; Lymphocytes # (A) 1.77 X 10*3/uL (0.90-5.00); Lymphocytes % (A) 33.5 %; MCH 31.1 pg (27.0-32.0); MCHC 32.9 g/dL (32.0-37.0); MCV 94.3 fL (80.0-97.0); Mean Platelet Volume 10.3 fL (9.5-12.2); Monocytes # (A) 0.53 X 10*3/uL (0.20-1.00); NRBC Per 100 WBC 0 /100 WBCS (0.0-0.0); Neutrophils # (A) 2.56 X 10*3/uL (1.80-7.70); Neutrophils % (A) 48.4 %; Platelet Count 256 X 10*3/uL (140-440); RBC 4.38 X 10*6/uL (4.10-5.20); RDW 11.9 % (11.5-14.5); WBC 5.29 X 10*3/uL (4.50-10.00)
[2022-08-30 14:54] LABS: Erythrocyte Sedimentation Rate 16 mm/Hr (0-30)
[2022-08-30 15:04] LABS: % Iron Saturation 26.95 (12.00-45.00); ALT 17 U/L (8-44); AST 22 U/L (13-35); African American GFR (CKD) 85.2 (60.0-200.0); Albumin 4.2 g/dL (3.8-4.9); Albumin/Globulin Ratio 1.73 (1.60-3.17); Alkaline Phosphatase 49 U/L (41-126); BUN/Creat Ratio 16.67 Ratio (12.00-20.00); Blood Urea Nitrogen 13.2 mg/dL (9.0-27.0); Calcium 9.1 mg/dL (8.7-10.3); Carbon Dioxide 27.8 mmol/L (20.0-27.5); Chloride 104 mmol/L (96-109); Chol/HDL Ratio 2.72 Ratio; Globulin 2.4 g/dL (1.6-3.3); Glucose 102 mg/dL (70-110); Iron 103 ug/dL (50-170); Magnesium 2.2 mg/dL (1.5-2.4); Non-African American GFR(CKD) 73.5 (60.0-200.0); Potassium 4.6 mmol/L (3.5-5.5); Sodium 142 mmol/L (135-145); Total Iron Binding Capacity 382 ug/dL (228-460); Total Protein 6.7 g/dL (6.2-8.2)
== END | disposition home or self-care (01) ==
LOC: LABWHC1 07:45
PROVIDERS: ATTEND Family Medicine
DX: I10 Essential (primary) hypertension (principal); D50.9 Iron deficiency anemia, unspecified; E78.5 Hyperlipidemia, unspecified; I48.0 Paroxysmal atrial fibrillation; M35.3 Polymyalgia rheumatica; E53.8 Deficiency of other specified B group vitamins; E55.9 Vitamin D deficiency, unspecified
CPT/HCPCS: 36415; 80053; 80061; 82306; 82607; 82728; 83540; 83550; 83735; 84439; 84443; 85025; 85652

== ENCOUNTER → 2022-10-07 | Outpatient (CLI) | payer MEDICARE ==
--- NOTE | 2022-10-07 08:55 | MM ---
Reason for Exam: Clinical finding. Last screening mammogram was performed 12 month(s) ago. Patient History: Menarche at age 8. First Full-Term at age 18. Postmenopausal. Breast cancer, left, age 52. Benign Cyst Aspiration on the right side. Benign Cyst Aspiration on the right side. 10/15/2002, Benign Lumpectomy on the left side. 09/21/2002, Stereotactic Core Biopsy on the Left side. 07/13/2017, US discontinued breast bx RT on the right side. Maternal aunt had breast cancer. Prior Study Comparison: 11/08/1997 Screening Mammogram, Unknown. 11/29/1997 Bilateral Diagnostic Ultrasound, [facility]. 03/31/1999 Bilateral Screening Mammogram, [facility]. 03/31/1999 Screening Mammogram, Unknown. 06/01/2000 Bilateral Screening Mammogram, [facility]. 07/20/2001 Bilateral Screening Mammogram, [facility]. 08/30/2002 Bilateral Screening Mammogram, [facility]. 09/12/2002 Left Diagnostic Mammogram, [facility]. 06/25/2003 Bilateral Diagnostic Mammogram, [facility]. 08/08/2004 Bilateral Screening Mammogram, [facility]. 10/11/2005 Bilateral Screening Mammogram, [facility]. 10/19/2005 Right Diagnostic Mammogram, [facility] 11/02/2006 Bilateral Screening Mammogram, [facility] 11/16/2007 Bilateral Screening Mammogram, [facility]. 01/06/2009 Bilateral Screening Mammogram, [facility]. 01/22/2010 Bilateral Screening Mammogram, [facility] 08/06/2010 Right Diagnostic Mammogram, [facility]. 01/28/2011 Bilateral Diagnostic Mammogram, [facility] 03/09/2012 Bilateral Diagnostic Mammogram, [facility] 05/14/2013 Bilateral Diagnostic Mammogram, [facility] 05/28/2014 Bilateral Diagnostic Mammogram, [facility]. 06/11/2015 Bilateral Diagnostic Mammogram, [facility] 06/18/2016 Bilateral Diagnostic Mammogram, [facility]. 06/30/2017 Bilateral Diagnostic Mammogram, [facility]. 06/30/2017 Right Diagnostic Ultrasound, [facility]. 01/11/2018 Right Diagnostic Ultrasound, [facility]. 01/11/2018 Right Diagnostic Mammogram, [facility]. 04/10/2019 Bilateral Diagnostic Mammogram, [facility]. 04/10/2019 Left Diagnostic Ultrasound, [facility]. 04/20/2019 Left Diagnostic Mammogram, [facility]. 11/16/2019 Left Diagnostic Mammogram, [facility]. 09/10/2020 Bilateral Diagnostic Mammogram, [facility]. 09/10/2020 Right Diagnostic Ultrasound, [facility]. 10/06/2021 Bilateral Diagnostic Mammogram, [facility]. Tissue Density: There are scattered fibroglandular densities. Findings: Analyzed By CAD. Unchanged asymmetric densities lateral right breast compatible with islands of fibroglandular tissue. Benign vascular calcifications on the right. Postsurgical changes left breast is similar. Nodular asymmetric density superior left MLO view does not persist on additional views. No significant change from prior exams. Overall Assessment: Benign, BI-RAD 2 Management: Screening Mammogram of both breasts in 1 year. 1. Patient should continue monthly self breast exams. 2. A clinical breast exam by your physician is recommended on an annual basis. 3. This exam should not preclude additional follow-up of suspicious palpable abnormalities. Results were given to the patient verbally at the time of exam. Electronically signed and approved by: Juan Lerma M.D. Radiologist
== END | disposition home or self-care (01) ==
LOC: RADMAMWWP 07:36
PROVIDERS: ATTEND Family Medicine
DX: R92.8 Other abnormal and inconclusive findings on diagnostic imaging of breast (principal); Z78.0 Asymptomatic menopausal state; Z80.3 Family history of malignant neoplasm of breast; Z85.3 Personal history of malignant neoplasm of breast; Z98.890 Other specified postprocedural states
CPT/HCPCS: 77066; G0279; 77062

== ENCOUNTER → 2022-11-18 | Outpatient (CLI) | payer MEDICARE ==
--- NOTE | 2022-11-18 16:08 | BD ---
EXAMINATION TYPE: Axial Bone Density DATE OF EXAM: 11/18/2022 COMPARISON: 09-10-20 CLINICAL HISTORY: 72 years year old Female. ICD-10 CODE: M81.0 OSTEOPOROSIS Height: 59.5IN Weight: 124LB FRAX RISK QUESTIONS: History of Fracture in Adulthood: YES Secondary Osteoporosis: RISK FACTORS HISTORY OF: History of Wrist Fracture: YES RT WRIST When: 2012 Surgery to Wrist (right/left): YES RT When: 2012 Family History of Osteoporosis: YES Active: YES Postmenopausal woman: YES MEDICATIONS: Osteoporosis Medications: Which medication: Prolia How Lon-2 YEARS Additional Medications: BP MED, CARDIAC MED, TREMOR MED, CALCIUM WITH VITAMIN D Additional History: ANKLE FX EXAM MEASUREMENTS: Bone mineral densitometry was performed using the [email or web address] System. Bone mineral density as measured about the Lumbar spine is: ----- L1-L4(G/cm2): 0.881 T Score Values are as follows: ----- L1: -3.0 ----- L2: -2.5 ----- L3: -1.9 ----- L4: -2.6 ----- L1-L4: -2.5 Bone mineral density has: Increased 10.2% since study of: 09-10-20 Bone mineral density about the R hip (g/cm2): 0.837 Bone mineral density about the L hip (g/cm2): 0.834 T Score values are as follows: -----R Neck: -1.8 -----L Neck: -1.6 -----R Total: -1.4 -----L Total: -1.4 Bone mineral density has: Increased 4.8% since study of: 09-10-20 FRAX%s: The graph provided illustrates a 18.9% chance for a major osteoporotic fx and a 4.1% chance f or the hips probability for fx in 10 years time. IMPRESSION: Osteopenia (T Score between -2.5 and -1). There is slightly increased risk of fracture and the patient may be considered for treatment. Re-Screen 2-5 years. NOTE: T-SCORE=SD OF THE YOUNG ADULT MEAN.
== END | disposition home or self-care (01) ==
LOC: RADBDWWP 08:40
PROVIDERS: ATTEND Internal Medicine Rheumatology
DX: M81.0 Age-related osteoporosis without current pathological fracture (principal); M85.89 Other specified disorders of bone density and structure, multiple sites; Z78.0 Asymptomatic menopausal state
CPT/HCPCS: 77080

== ENCOUNTER → 2023-01-24 | Outpatient (CLI) | payer MEDICARE ==
--- NOTE | 2023-01-25 06:41 | MR ---
EXAMINATION TYPE: MR shoulder RT wo con, MR humerus RT wo con DATE OF EXAM: 01/24/2023 COMPARISON: None. HISTORY: Rt shoulder pain into humerus. Tendon injury. TECHNIQUE: Multiplanar, multisequence imaging of the right shoulder and humerus are performed without contrast. FINDINGS: Rotator Cuff: Some increased signal and surrounding fluid supraspinatus and infraspinatus tendons. No tearing is present. Subscapularis tendon shows some surrounding fluid. Rotator cuff muscle bulk is p reserved. Acromioclavicular Joint: Moderate narrowing and mild to moderate superior capsular hypertrophy. Dista l acromion morphology unremarkable. Glenohumeral Joint: Small to moderate size joint effusion. No significant spurring. Labrum: Blunting and marked increased signal superior labrum consistent with tear. Biceps Tendon: The long head of biceps is in normal location within bicipital groove. Intracapsular p ortion is not well seen Bone marrow signal: Tiny subchondral cystic change throughout the periphery of the humeral head great est laterally. Other: No additional significant abnormality is appreciated. Humerus: Images of right humerus show bone marrow signal intensity to appear preserved. Muscle bulk i s maintained. Distal long head of biceps tendon is nearly visualized in its entirety. Visualized port ions is intact. Visualized elbow joint appears grossly within normal limits. No concerning solid or c ystic mass or abnormal fluid collection is seen. No suspicious subcutaneous edema is evident. IMPRESSION: Tendinosis of the supraspinatus and infraspinatus tendons. No rotator cuff tear. Degenera tive changes as detailed above. Superior labral tear is present.
== END | disposition home or self-care (01) ==
LOC: RADMRIMAIN 07:38
PROVIDERS: ATTEND Family Medicine
DX: S46.19 Other injury of muscle, fascia and tendon of long head of biceps (principal); M67.813 Other specified disorders of tendon, right shoulder; M19.011 Primary osteoarthritis, right shoulder

== ENCOUNTER → 2023-03-04 | Outpatient (CLI) | payer MEDICARE ==
[2023-03-04 11:11] LABS: Basophils # (A) 0.05 X 10*3/uL (0.00-0.10); Eosinophils # (A) 0.35 X 10*3/uL (0.04-0.35); Eosinophils % (A) 6.7 %; HGB 12.4 g/dL (12.0-15.0); Immature Grans, Automated 0 %; Lymphocytes # (A) 1.38 X 10*3/uL (0.90-5.00); Lymphocytes % (A) 26.6 %; MCH 28.9 pg (27.0-32.0); MCHC 31.8 g/dL (32.0-37.0); MCV 90.9 fL (80.0-97.0); Monocytes # (A) 0.61 X 10*3/uL (0.20-1.00); Monocytes % (A) 11.8 %; NRBC Per 100 WBC 0 /100 WBCS (0.0-0.0); Neutrophils % (A) 53.9 %; Platelet Count 197 X 10*3/uL (140-440); RBC 4.29 X 10*6/uL (4.10-5.20); RDW 13.2 % (11.5-14.5); WBC 5.19 X 10*3/uL (4.50-10.00)
[2023-03-04 11:13] LABS: Amorphous Sediment,Urine Present /LPF (None Seen); Appearance,Urine Turbid (Clear); Bacteria,Urine 1+ /HPF (None Seen); Bilirubin,Urine Negative (Negative); Blood,Urine Moderate (Negative); Color,Urine Dark Yellow (Yellow); Ketones,Urine Trace mg/dL (Negative); Nitrite,Urine Negative (Negative); PH, Urine 7.5 (5.0-8.0); Specific Gravity,Urine 1.018 (1.001-1.030)
[2023-03-04 11:28] LABS: ALT 14 U/L (8-44); AST 19 U/L (13-35); African American GFR (CKD) 84.2 (60.0-200.0); Albumin 3.8 g/dL (3.8-4.9); Albumin/Globulin Ratio 1.52 (1.60-3.17); Alkaline Phosphatase 61 U/L (41-126); BUN/Creat Ratio 15.63 Ratio (12.00-20.00); Blood Urea Nitrogen 12.5 mg/dL (9.0-27.0); Calcium 9.1 mg/dL (8.7-10.3); Carbon Dioxide 29.3 mmol/L (20.0-27.5); Chloride 104 mmol/L (96-109); Chol/HDL Ratio 2.37 Ratio; Globulin 2.5 g/dL (1.6-3.3); Glucose 100 mg/dL (70-110); LDL Cholesterol,Calculated 120.4 mg/dL (0.0-131.0); Non-African American GFR(CKD) 72.6 (60.0-200.0); Potassium 4.5 mmol/L (3.5-5.5); Sodium 142 mmol/L (135-145); Total Protein 6.3 g/dL (6.2-8.2); VLDL Calculation 13.58 mg/dL (5.00-40.00)
== END | disposition home or self-care (01) ==
LOC: LABWHC1 07:23
PROVIDERS: ATTEND Internal Medicine Cardiovascular Disease
DX: E78.5 Hyperlipidemia, unspecified (principal); I10 Essential (primary) hypertension; R30.0 Dysuria
CPT/HCPCS: 36415; 80053; 80061; 81001; 85025

== ENCOUNTER → 2023-07-20 | Outpatient (CLI) | payer MEDICARE ==
--- NOTE | 2023-07-20 15:37 | US ---
EXAMINATION TYPE: US kidneys/renal and bladder DATE OF EXAM: 07/20/2023 COMPARISON: 07/10/2020 CLINICAL INDICATION: Female, 72 years old with history of N39.0 URINARY TRACT INFECTION, SITE NOT SPE CIFIED; recurrent UTIs EXAM MEASUREMENTS: Right Kidney: 9.6x4.1x4.7 cm Left Kidney: 10.8x5.1x3.9 cm Right Kidney: wnl, tiny cyst from prior not seen on todays exam Left Kidney: wnl Bladder: overly distended, patient could not tolerate thorough exam with jets Bilateral Jets seen: No There is no evidence for hydronephrosis at this point in time. No nephrolithiasis is seen. No alma s are identified. The urinary bladder is anechoic. Bilateral ureteral jets are seen. IMPRESSION: 1. No acute ultrasound abnormality renal ultrasound.
== END | disposition home or self-care (01) ==
LOC: RADUSWWP 14:18
PROVIDERS: ATTEND Family Medicine
DX: N39.0 Urinary tract infection, site not specified (principal)
CPT/HCPCS: 76770

== ENCOUNTER → 2023-08-25 | Outpatient (CLI) | payer MEDICARE ==
--- NOTE | 2023-08-25 19:05 | US ---
EXAMINATION TYPE: US thyroid st tissue head/neck DATE OF EXAM: 08/25/2023 COMPARISON: CT: 05/05/18 CLINICAL INDICATION: Female, 73 years old with history of E04.1 NONTOXIC SINGLE THYROID NODULE; Pt st ates felt a lump on her right side. GLAND SIZE: Right Lobe: 4.7 x 1.1 x 1.1 cm Overall Parenchyma: homogeneous Left Lobe: 3.5 x 0.7 x 1.4 cm Overall Parenchyma: homogeneous Isthmus Thickness: 0.23 cm NODULES RIGHT: # of nodules measured on right: 0 LEFT: # of nodules measured on left: 0 ISTHMUS: # of nodules measured in the isthmus: 0 Bilateral neck scanned, no evidence of lymphadenopathy. IMPRESSION: No suspicious thyroid nodules. Nothing to correlate with 's palpated lump.
== END | disposition home or self-care (01) ==
LOC: RADUSWWP 16:04
PROVIDERS: ATTEND Family Medicine
DX: E04.1 Nontoxic single thyroid nodule (principal)
CPT/HCPCS: 76536

== ENCOUNTER → 2023-11-17 | Outpatient (CLI) | payer MEDICARE ==
--- NOTE | 2023-11-18 20:06 | MM ---
Reason for Exam: Screening (asymptomatic). Last mammogram was performed 1 year(s) and 1 month(s) ago. Patient History: Menarche at age 8. First Full-Term at age 18. Postmenopausal. Breast cancer, left, age 52. Benign Cyst Aspiration on the right side. Benign Cyst Aspiration on the right side. 10/15/2002, Benign Lumpectomy on the left side. 09/21/2002, Stereotactic Core Biopsy on the Left side. 07/13/2017, US discontinued breast bx RT on the right side. Maternal aunt had breast cancer. Prior Study Comparison: 09/10/2020 Bilateral Diagnostic Mammogram, [facility]. 10/06/2021 Bilateral Diagnostic Mammogram, [facility]. 10/07/2022 Bilateral MG 3D diag mammo w/cad BLESSING, [facility]. Tissue Density: There are scattered fibroglandular densities. Findings: Analyzed By CAD. Unchanged global asymmetry right breast. Benign vascular calcifications on the right. There is no suspicious group of microcalcifications or new suspicious mass in either breast. Overall Assessment: Benign, BI-RAD 2 Management: Screening Mammogram of both breasts in 1 year. . Patient should continue monthly self-breast exams. A clinical breast exam by your physician is recommended on an annual basis. This exam should not preclude additional follow-up of suspicious palpable abnormalities. Electronically signed and approved by: Juna Lerma M.D. Radiologist
== END | disposition home or self-care (01) ==
LOC: RADMAMWWP 10:03
PROVIDERS: ATTEND Family Medicine
DX: Z12.31 Encounter for screening mammogram for malignant neoplasm of breast (principal); Z85.3 Personal history of malignant neoplasm of breast; Z80.3 Family history of malignant neoplasm of breast; Z78.0 Asymptomatic menopausal state
CPT/HCPCS: 77063; 77067

== ENCOUNTER → 2024-06-29 | Outpatient (CLI) | payer MEDICARE ==
[2024-06-29 14:29] LABS: ALT 16 U/L (4-34); AST 32 U/L (14-36); African American GFR (CKD) >90 (>60 ml/min/1.73 sqM); Anion Gap 5 mmol/L; Blood Urea Nitrogen 15 mg/dL (7-17); C Reactive Protein 1.8 mg/dL (<1.0); Calcium 10.1 mg/dL (8.4-10.2); Carbon Dioxide 30 mmol/L (22-30); Chloride 103 mmol/L (98-107); Glucose 97 mg/dL (74-99); Non-African American GFR(CKD) 86 (>60 ml/min/1.73 sqM); Potassium 4.6 mmol/L (3.5-5.1); Sodium 138 mmol/L (137-145)
[2024-06-29 14:31] LABS: Ionized Calcium 5.3 mg/dL (4.5-5.3)
[2024-06-29 16:38] LABS: Basophils # (A) 0.05 X 10*3/uL (0.00-0.10); Basophils % (A) 0.7 %; Eosinophils # (A) 0.17 X 10*3/uL (0.04-0.35); Eosinophils % (A) 2.5 %; HCT 38.9 % (37.2-46.3); HGB 12.9 g/dL (12.0-15.0); Lymphocytes # (A) 1.73 X 10*3/uL (0.90-5.00); Lymphocytes % (A) 25.2 %; MCH 30.8 pg (27.0-32.0); MCHC 33.2 g/dL (32.0-37.0); MCV 92.8 FL (80.0-97.0); Mean Platelet Volume 10.4 FL (9.5-12.2); Monocytes # (A) 0.61 X 10*3/uL (0.20-1.00); Monocytes % (A) 8.9 %; NRBC Per 100 WBC 0 X 10*3/uL (0.00-0.01); Neutrophils # (A) 4.28 X 10*3/uL (1.80-7.70); Neutrophils % (A) 62.4 %; Platelet Count 241 X 10*3/uL (140-440); RBC 4.19 X 10*6/uL (4.10-5.20); RDW 12.3 % (11.5-14.5); WBC 6.86 X 10*3/uL (4.50-10.00)
[2024-06-29 17:00] LABS: Erythrocyte Sedimentation Rate 45 mm/Hr (0-30)
== END ==
LOC: LABWHC1 11:31
PROVIDERS: ATTEND Internal Medicine Rheumatology
DX: M81.0 Age-related osteoporosis without current pathological fracture (principal); E55.9 Vitamin D deficiency, unspecified; M14.88 Arthropathies in other specified diseases classified elsewhere, vertebrae
CPT/HCPCS: 36415; 80048; 82306; 82330; 84450; 84460; 85025; 85652; 86140

== ENCOUNTER → 2025-01-07 | Outpatient (CLI) | payer MEDICARE ==
--- NOTE | 2025-01-07 08:50 | BD ---
EXAMINATION TYPE: Axial Bone Density DATE OF EXAM: 01/07/2025 CLINICAL HISTORY: 74 years old Female. ICD-10 CODE: M81.0 AGE-RELATED OSTEO , Additional History: Height: 59.5" Weight: 123lbs FRAX RISK QUESTIONS: Alcohol (3 or more units per day): No Family History (Parent hip fracture): No Glucocorticoids (More than 3mos): No (Ex: prednisone, prednisolone, methylprednisolone, dexamethasone, and hydrocortisone). History of Fracture in Adulthood: Yes Secondary Osteoporosis: 1. Type 1 Diabetes: No 2. Hyperthyroidism: No 3. Menopause before 45: No 4. Malnutrition: No 5. Chronic liver disease: No Rheumatoid Arthritis: No Current Tobacco Use: No RISK FACTORS HISTORY OF: Hip Fracture (Right/Left): No Spine Fracture: No History of Wrist Fracture: No Surgery to Spine/Hip(right/left)/Wrist (right/left): Yes, right wrist MEDICATIONS: Thyroid Medications: No Osteoporosis Medications: Yes, prolia injections for 2-3 years EXAM MEASUREMENTS: Bone mineral densitometry was performed using the [employer] System. Bone mineral density as measured about the Lumbar spine is: ----- L1-L4(G/cm2): 0.890 T Score Values are as follows: ----- L1: -2.7 ----- L2: -2.4 ----- L3: -1.8 ----- L4: -2.8 ----- L1-L4: -2.4 Z Score Values are as follows: ----- L1: -0.7 ----- L2: -0.3 ----- L3: 0.2 ----- L4: -0.7 ----- L1-L4: -0.3 Bone mineral density has: increased 1.0% since study of: 11/18/2022 Bone mineral density about the R hip (g/cm2): 0.839 Bone mineral density about the L hip (g/cm2): 0.865 T Score values are as follows: -----R Neck: -1.6 -----L Neck: -1.4 -----R Total: -1.3 -----L Total: -1.1 Z Score values are as follows: -----R Neck: 0.5 -----L Neck: 0.7 -----R Total: 0.7 -----L Total: 0.9 Bone mineral density has: increased 4.8% since study of: 11/18/2022 FRAX%s: The graph provided illustrates a 19.0% chance for a major osteoporotic fx and a 4.1% chance f or the hips probability for fx in 10 years time. IMPRESSION: Osteopenia (T Score between -2.5 and -1). There is slightly increased risk of fracture and the patient may be considered for treatment. Re-Screen 2-5 years. NOTE: T-SCORE=SD OF THE YOUNG ADULT MEAN. [facility], , 01/07/2025 8:48 AM
--- NOTE | 2025-01-08 10:50 | MM ---
Reason for Exam: Screening (asymptomatic). Last mammogram was performed 1 year(s) and 2 month(s) ago. Patient History: Menarche at age 8. First Full-Term at age 18. Postmenopausal. Breast cancer, left, age 52. Benign Cyst Aspiration on the right side. Benign Cyst Aspiration on the right side. 10/15/2002, Benign Lumpectomy on the left side. 09/21/2002, Stereotactic Core Biopsy on the Left side. 07/13/2017, US discontinued breast bx RT on the right side. Maternal aunt had breast cancer. Prior Study Comparison: 10/06/2021 Bilateral Diagnostic Mammogram, [facility]. 10/07/2022 Bilateral MG 3D diag mammo w/cad BLESSING, [facility]. 11/17/2023 Bilateral MG 3D screening mammo w/cad, [facility]. Tissue Density: There are scattered areas of fibroglandular density. Findings: Analyzed By CAD. There is no suspicious group of microcalcifications or new suspicious mass in either breast. Overall Assessment: Negative, BI-RAD 1 Management: Screening Mammogram of both breasts in 1 year. . Patient should continue monthly self-breast exams. A clinical breast exam by your physician is recommended on an annual basis. This exam should not preclude additional follow-up of suspicious palpable abnormalities. Note on Celeste scores and lifetime risk: 1. A Celeste score greater than 3% is considered moderate risk. If this is the case, consider specialist referral to assess eligibility for a risk reducing agent. 2. If overall lifetime risk for the development of breast cancer is 20% or higher, the patient may qualify for future screening with alternating mammogram and breast MRI. [facility], , 01/07/2025 8:19 AM. Electronically signed and approved by: Israel Brito M.D. Radiologis
== END | disposition home or self-care (01) ==
LOC: RADBDWWP 07:57
PROVIDERS: ATTEND Internal Medicine Geriatric Medicine
DX: Z12.31 Encounter for screening mammogram for malignant neoplasm of breast (principal); M81.0 Age-related osteoporosis without current pathological fracture; M85.89 Other specified disorders of bone density and structure, multiple sites; Z78.0 Asymptomatic menopausal state; Z85.3 Personal history of malignant neoplasm of breast; Z80.3 Family history of malignant neoplasm of breast
CPT/HCPCS: 77063; 77067; 77080